=== PATIENT | male | born 2000 | race Caucasian/White ===

== ENCOUNTER 2021-06-21 09:08 | Outpatient (CLI) | payer OTHER | END 2021-06-21 23:59 | disposition home or self-care (01) | LOC: CFH 09:08 | PROVIDERS: ATTEND Nurse Practitioner Family | DX: J32.9 Chronic sinusitis, unspecified (principal); R63.4 Abnormal weight loss; J34.89 Other specified disorders of nose and nasal sinuses | CPT/HCPCS: 70450; 71250; 74176 ==